=== PATIENT | male | born 1955 ===

== ENCOUNTER 2016-12-04 10:38 | Emergency (ER) | payer OTHER ==
[2016-12-04 10:56] VITALS: BP 128/68
--- NOTE | 2016-12-04 11:09 | UC ---
Shoulder Pain HPI - HPI Summary HPI Summary: L shoulder pain, stiffness, and weakness starting about a week ago. Has been working arms hard on yard work, no hx of L shoulder surgery or problems. Did have R shoulder bursitis some years back that was better after a steroid shot. Does not see an orthopedist currently for anything. 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 - History of Current Complaint Chief Complaint: UCUpperExtremity Stated Complaint: LEFT SHOULDER PAIN Time Seen by Provider: 12/04/16 10:50 Hx Obtained From: Patient Onset/Duration: Gradual Onset, Lasting Minutes, Lasting Days Severity Initially: Moderate Severity Currently: Moderate Location Of Pain: Is Discrete @ Character: Dull, Aching, Stiffness Aggravating Factor(s): Movement, Extension, Internal Rotation, Abduction Alleviating Factor(s): Rest Associated Signs And Symptoms: Positive: Negative Related History: Similar Episode/Dx As - R shoulder bursitis, Dominant Hand Right - Allergies/Home Medications Allergies/Adverse Reactions: Allergies Allergy/AdvReac Type Severity Reaction Status Date / Time Penicillins Allergy Severe Hives Verified 12/04/16 10:47 Home Medications: Home Medications Atorvastatin* [Lipitor*] 40 mg PO QPM 12/04/16 [History Confirmed 12/04/16] Lisinopril TAB* [Prinivil TAB*] 20 mg PO DAILY 12/04/16 [History Confirmed 12/04] PMH/Surg Hx/FS Hx/Imm Hx Cardiovascular History: Hypertension - Surgical History Surgical History: Yes Surgery Procedure, Year, and Place: Gallbladder - Family History Known Family History: Positive: Hypertension - Social History Occupation: Retired Alcohol Use: Occasionally Substance Use Type: None Smoking Status (MU): Former Smoker - Immunization History Most Recent Influenza Vaccination: 2016 Most Recent Tetanus Shot: UTD Most Recent Pneumonia Vaccination: NONE Review of Systems Constitutional: Negative Skin: Negative Eyes: Negative ENT: Negative Respiratory: Negative Cardiovascular: Negative Gastrointestinal: Negative Genitourinary: Negative Motor: Negative Neurovascular: Negative Musculoskeletal: Arthralgia - L shoulder pain Neurological: Negative Psychological: Negative All Other Systems Reviewed And Are Negative: Yes Physical Exam Triage Information Reviewed: Yes Appearance: Well-Appearing, Pain Distress - with L shoulder movement Vital Signs: Initial Vital Signs Temp 97.6 F 12/04/16 10:48 Pulse 76 12/04/16 10:48 Resp 16 12/04/16 10:48 BP 128/68 12/04/16 10:48 Pulse Ox 97 12/04/16 10:48 Vital Signs Reviewed: Yes Eye Exam: Normal Eyes: Positive: Conjunctiva Clear ENT Exam: Normal ENT: Positive: Normal ENT inspection, Hearing grossly normal, Pharynx normal, TMs normal Dental Exam: Normal Neck exam: Normal Neck: Positive: Supple, Nontender, No Lymphadenopathy Respiratory Exam: Normal Respiratory: Positive: Chest non-tender, Lungs clear, Normal breath sounds, No respiratory distress, No accessory muscle use Cardiovascular Exam: Normal Cardiovascular: Positive: RRR, No Murmur Musculoskeletal: Positive: ROM Limited @ - L shoulder extension to approx 90 deg , abduction to approx 80 deg, Other: - pain over anterior shoulder with palpation Neurological Exam: Normal Neurological: Positive: Alert Psychological Exam: Normal Skin Exam: Normal Shoulder Course/Dx - Differential Dx/Diagnosis Provider Diagnoses: L shoulder arthritis. L shoulder tendinitis vs subacromial bursitis Discharge - Discharge Plan Condition: Stable Disposition: HOME Patient Education Materials: Shoulder Bursitis (ED) Referrals: Fred Dunbar MD [Medical Doctor] - 3 Days Additional Instructions: Keep taking naproxen twice per day to help with pain, and avoid overuse of the shoulder. I do recommend you do gentle range-of motion activities as tolerated, but do not force your arm into very painful positions.
--- NOTE | 2016-12-04 11:20 | RAD ---
Indication: Left shoulder pain. 3 views of left shoulder demonstrates AC joint arthritis. Degenerative changes of the glenohumeral joint is noted. No fracture is noted. IMPRESSION: AC joint arthritis. Degenerative changes of the glenohumeral joint.
== END 2016-12-04 11:53 | disposition home or self-care (01) ==
LOC: UCCORT 10:38
DX: M19.012 Primary osteoarthritis, left shoulder (principal)
CPT/HCPCS: 99212; G0463

== ENCOUNTER 2018-07-29 11:47 | Emergency (ER) | payer OTHER ==
[2018-07-29 12:14] VITALS: BP 144/68
--- NOTE | 2018-07-29 12:58 | UC ---
Abdominal Pain Male HPI - HPI Summary HPI Summary: RLQ abdominal pain x 3 weeks , pain is sever 8 out of 10 , no radiation , pain is episodic / comes and goes, worse when lying down, better when standing no fever, no chills, no N/V/D/C , no urinary sx - History of Current Complaint Chief Complaint: UCAbdominalPain Stated Complaint: ABD PAIN Time Seen by Provider: 07/29/18 12:23 Hx Obtained From: Patient Onset/Duration: Gradual Onset, Lasting Weeks - 3, Still Present Timing: Constant Severity Initially: Moderate Severity Currently: Severe Pain Intensity: 7 Location: Discrete At: RLQ Radiates: No Character: Tearing Aggravating Factor(s): Movement Alleviating Factor(s): Position Associated Signs And Symptoms: Negative: Diaphoresis, Fever, Cough, Chest Pain, Dizzy, Back Pain, Constipation, Blood in Stool, Urinary Symptoms, Decreased Appetite, Nausea, Vomiting, Diarrhea, Penile Discharge - Allergies/Home Medications Allergies/Adverse Reactions: Allergies Allergy/AdvReac Type Severity Reaction Status Date / Time MS Penicillins [Penicillins] Allergy Severe Hives Verified 07/29/18 12:02 Home Medications: Home Medications Acetaminophen [Acetaminophen Extra Strength] 250 mg PO PRN 07/29/18 [History] PMH/Surg Hx/FS Hx/Imm Hx - Additional Past Medical History Additional PMH: High cholesterol 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 Cardiovascular History: Hypertension GI/ History: Diverticulitis - Surgical History Surgical History: Yes Surgery Procedure, Year, and Place: Gallbladder - Family History Known Family History: Positive: Hypertension - Social History Alcohol Use: Rare Substance Use Type: None Smoking Status (MU): Former Smoker When Did the Patient Quit Smoking/Using Tobacco: 22 YEARS AGO - Immunization History Most Recent Influenza Vaccination: 2016 Most Recent Tetanus Shot: UTD Most Recent Pneumonia Vaccination: NONE Review of Systems All Other Systems Reviewed And Are Negative: Yes Constitutional: Positive: Negative Skin: Positive: Negative Eyes: Positive: Negative ENT: Positive: Negative Cardiovascular: Positive: Negative Gastrointestinal: Positive: Abdominal Pain Genitourinary: Positive: Negative Is Patient Immunocompromised?: No Physical Exam Triage Information Reviewed: Yes Appearance: Well-Appearing, No Pain Distress, Obese Vital Signs: Initial Vital Signs Temp 97.9 F 07/29/18 12:04 Pulse 82 07/29/18 12:04 Resp 16 07/29/18 12:04 BP 144/68 07/29/18 12:04 Pulse Ox 97 07/29/18 12:04 Vital Signs Reviewed: Yes Eye Exam: Normal Eyes: Positive: Conjunctiva Clear ENT: Positive: Normal ENT inspection, Hearing grossly normal, Pharynx normal Neck: Positive: Supple, Nontender, No Lymphadenopathy Respiratory: Positive: Chest non-tender, Lungs clear, Normal breath sounds Cardiovascular: Positive: RRR, No Murmur, Pulses Normal Abdomen Description: Positive: Soft. Negative: No Organomegaly, CVA Tenderness (R), CVA Tenderness (L), Distended, Guarding, Hernia @ Bowel Sounds: Positive: Present, Other: - tenderness RLQ Diagnostics - Laboratory Diagnostic Studies Completed/Ordered: CT abd/pelvic : IMPRESSION: 1. NO HYDRONEPHROSIS OR NEPHROLITHIASIS. 2. NORMAL APPENDIX. 3. DIVERTICULOSIS. 4. FATTY INFILTRATION OF THE LIVER. 5. ATHEROSCLEROSIS. Abd Pain Male Course/Dx - Differential Dx/Clinical Impression Provider Diagnosis: RLQ abdominal pain Discharge - Sign-Out/Discharge Documenting (check all that apply): Patient Departure All imaging exams completed and their final reports reviewed: Yes - Discharge Plan Condition: Stable Disposition: HOME Patient Education Materials: Acute Abdominal Pain (ED) Referrals: Misa HOLDEN,Bogdan Kaur [Primary Care Provider] - 5 Days Additional Instructions: normal abd/pelvic ct ? abdominal wall / muscle pain cont. with rest , Naproxen as needed for pain ' follow up with your pcp in 7 days if not better - Billing Disposition and Condition Condition: STABLE Disposition: Home
== END 2018-07-29 13:17 | disposition home or self-care (01) ==
LOC: UCCORT 11:47
DX: R10.31 Right lower quadrant pain (principal); I10 Essential (primary) hypertension; Z88.0 Allergy status to penicillin; Z87.891 Personal history of nicotine dependence
CPT/HCPCS: 74176; 81003; 99211; G0463